=== PATIENT | female | born 1960 | race African-American/Black ===

== ENCOUNTER 2021-04-06 19:50 | Emergency (ER) | payer BC ==
[~2021-04-06] VITALS: Ht 170.2 cm; Wt 87.0 kg
[2021-04-06] MEDS ORDERED: AMLODIPINE 5MG TABLET PO ONE (23:00)
[2021-04-06] MEDS ORDERED: HYDROCHLOROTHIAZIDE 25MG TABLET PO ONE (23:00)
[2021-04-07] VITALS: BP 129/71
[2021-04-07] MEDS ORDERED: AMLO5TAB88 MT ×2 (00:02)
[2021-04-07] MEDS ORDERED: HYDR12.54 MT (00:02)
[2021-04-07 00:27] LABS: BASOPHILS % 0.5 % (0.0-2.0); EOSINOPHILS % 0.1 % (0.0-5.0); HEMATOCRIT. 39.6 % (36.0-48.0); HEMOGLOBIN. 12.7 g/dL (12.0-16.0); LYMPHOCYTES % 29.6 % (20.0-50.0); MEAN CORPUSCULAR HEMOGLOBIN 22.2 pg (28.0-32.0); MEAN CORPUSCULAR VOLUME 69.3 fL (81.0-99.0); MEAN PLATELET VOLUME 9.3 fl (7.4-10.4); MONOCYTES % 7.5 % (2.0-8.0); NEUTROPHILS % 62.3 % (40.0-76.0); PLATELET 292 x1000/uL (130-400); RED BLOOD CELL COUNT 5.72 mill/uL (4.2-5.4); RED CELL DISTRIBUTION WIDTH 15.6 % (11.6-14.6)
[2021-04-07 00:35] LABS: CHLORIDE 107 mEq/L (98-107)
[2021-04-07 04:51] LABS: PLATELET ESTIMATE NORMAL
== END 2021-04-07 01:07 | disposition home or self-care (01) ==
LOC: ER 19:50
DX: I10 Essential (primary) hypertension (principal)
CPT/HCPCS: 36415; 80053; 85025; 93005; 99284

== ENCOUNTER 2021-04-09 19:51 | Inpatient (IN) | payer BC ==
[~2021-04-09] VITALS: Ht 170.2 cm; Wt 84.0 kg
[~2021-04-09 19:51] MED LIST: AMLO5TAB88 MT; HYDR12.54 MT
[2021-04-09 20:55] LABS: BASOPHILS % 0.6 % (0.0-2.0); EOSINOPHILS % 0.3 % (0.0-5.0); HEMATOCRIT. 41.8 % (36.0-48.0); HEMOGLOBIN. 13.3 g/dL (12.0-16.0); LYMPHOCYTES % 38.5 % (20.0-50.0); MEAN CORPUSCULAR HEMOGLOBIN 21.7 pg (28.0-32.0); MEAN CORPUSCULAR VOLUME 68.3 fL (81.0-99.0); MEAN PLATELET VOLUME 9.4 fl (7.4-10.4); MONOCYTES % 9.5 % (2.0-8.0); NEUTROPHILS % 51.1 % (40.0-76.0); PLATELET 292 x1000/uL (130-400); RED BLOOD CELL COUNT 6.12 mill/uL (4.2-5.4); RED CELL DISTRIBUTION WIDTH 15.1 % (11.6-14.6)
[2021-04-09 20:57] LABS: CHLORIDE 100 mEq/L (98-107)
[2021-04-09 21:10] LABS: PLATELET ESTIMATE NORMAL
[2021-04-09 21:41] LABS: CLARITY URINE CLEAR (CLEAR); COLOR URINE YELLOW (YELLOW); KETONES URINE NEGATIVE (NEGATIVE); LEUKOCYTE ESTERASE URINE NEGATIVE (NEGATIVE); NITRITE URINE NEGATIVE (NEGATIVE); OCCULT BLOOD URINE NEGATIVE (NEGATIVE); PROTEIN URINE NEGATIVE (NEGATIVE); UROBILINOGEN URINE 0.2 E.U./dL (0.2-1.0)
[2021-04-09] MEDS ORDERED: LISI-186 MT (23:55)
[2021-04-10] MEDS ORDERED: LISINOPRIL 5MG TABLET PO ONE
[2021-04-10] MEDS ORDERED: HYDRALAZINE 20MG/ML VIAL IV ONE (00:30)
[2021-04-10] MEDS ORDERED: LORAZEPAM 1MG TABLET PO ONE (00:30)
[2021-04-10] MEDS ORDERED: CLONIDINE 0.1MG TABLET PO PRN ×2 (02:45→05:15)
[2021-04-10 04:00] VITALS: BP 118/65
[2021-04-10] MEDS ORDERED: ACETAMINOPHEN 325MG TABLET PO PRN (05:15)
[2021-04-10] MEDS ORDERED: POTASSIUM CHLORIDE 20MEQ TABLET SR PO NR (05:15)
[2021-04-10 07:58] VITALS: BP 144/78
[2021-04-10] MEDS ORDERED: AMLODIPINE 10MG TABLET PO SCH (09:00)
[2021-04-10] MEDS ORDERED: ENOXAPARIN 40MG/0.4ML SYR SUBCUT SCH (09:00)
[2021-04-10 10:00] VITALS: BP 148/68
[2021-04-10 12:00] VITALS: BP 124/69
[2021-04-10] MEDS ORDERED: ASPI-1406 MT (13:54)
[2021-04-10] MEDS ORDERED: CLON0.1T MT (13:54)
[2021-04-10 14:13] VITALS: BP 122/65
== END 2021-04-10 16:55 | disposition home or self-care (01) | DRG 305 ==
LOC: ER 19:51 → 6WST 04-10 00:53 → ENRESERV 04-10 02:17
PROVIDERS: ADMIT Internal Medicine; ATTEND Internal Medicine
DX: I16.0 Hypertensive urgency (principal); E87.1 Hypo-osmolality and hyponatremia; I10 Essential (primary) hypertension; M79.7 Fibromyalgia; Z82.49 Family history of ischemic heart disease and other diseases of the circulatory system; E87.6 Hypokalemia
CPT/HCPCS: 36415; 80053; 81003; 83735; 84484; 85025; 99285; J0360; J1650

== ENCOUNTER 2021-04-12 20:40 | Emergency (ER) | payer BC ==
[~2021-04-12] VITALS: Ht 170.2 cm; Wt 84.0 kg
[~2021-04-12 20:40] MED LIST changes: +ASPI-1406 MT; +CLON0.1T MT; +LISI-186 MT
[2021-04-12] MEDS ORDERED: AMLO10TA80 MT (23:02)
[2021-04-12 23:33] VITALS: BP 157/84
== END 2021-04-12 23:35 | disposition home or self-care (01) ==
LOC: ER 20:40
DX: I10 Essential (primary) hypertension (principal); M79.7 Fibromyalgia; Z79.899 Other long term (current) drug therapy
CPT/HCPCS: 99282